=== PATIENT | male | born 1975 | race Caucasian/White ===

== ENCOUNTER 2024-04-26 08:26 | Outpatient (OUT) | payer BC, SELFPAY ==
[2024-04-26 09:17] LABS: Basophils Absolute Auto 0.1 10^3/uL (0.0-0.1); Basophils Percent Auto 0.7 % (0.2-2.0); Eosinophils Absolute Auto 0.2 10^3/uL (0.0-0.7); Eosinophils Percent Auto 2.9 % (0.9-7.0); Hematocrit 48.3 % (42.0-54.0); Hemoglobin 16.4 g/dL (14.0-18.0); Immature Granulocytes Abs Auto 0.03 10^3/uL (0.00-0.03); Immature Granulocytes Pct Auto 0.4 % (0.0-0.5); Lymphocytes Absolute Auto 2.2 10^3/uL (1.2-3.8); Lymphocytes Percent Auto 26.7 % (20.5-60.0); Mean Corpuscular Hemoglobin 31.4 pg (25.9-34.0); Mean Corpuscular Volume 92.4 fL (80.0-94.0); Mean Platelet Volume 9.6 fL (9.5-13.5); Monocytes Absolute Auto 0.7 10^3/uL (0.3-0.8); Monocytes Percent Auto 8.8 % (1.7-12.0); Neutrophils Percent Auto 60.5 % (43.0-75.0); Platelet Count 309 10^3/uL (150-450); Red Blood Count 5.23 10^6/uL (4.70-6.10); Red Cell Distribution Width 12.3 % (11.0-15.0); White Blood Count 8.2 10^3/uL (4.0-11.0)
[2024-04-26 09:19] LABS: Bilirubin Urine NEGATIVE (NEGATIVE); Blood Urine NEGATIVE (NEGATIVE); Clarity Urine CLEAR (CLEAR); Color Urine YELLOW (YELLOW); Glucose Urine UA NEGATIVE (NEGATIVE); Ketones Urine NEGATIVE (NEGATIVE); Leukocyte Esterase Urine NEGATIVE (NEGATIVE); Nitrite Urine NEGATIVE (NEGATIVE); Protein Urine NEGATIVE (NEG/TRACE); Specific Gravity Urine 1.025 (1.005-1.025); pH Urine 6.5 (5.0-9.0)
[2024-04-26 09:28] LABS: Alanine Aminotransferase 54 U/L (16-63); Albumin Globulin Ratio 0.7; Albumin Level 2.9 g/dL (3.4-5.0); Alkaline Phosphatase 95 U/L (46-116); Anion Gap 13.5; Aspartate Amino Transferase 31 U/L (15-37); BUN Creatinine Ratio 12.4; Bilirubin Total 0.8 mg/dL (0.2-1.0); Calcium 8.4 mg/dL (8.5-10.1); Carbon Dioxide 27.6 mmol/L (21.0-32.0); Chloride 103 mmol/L (98-107); Chol HDL Ratio 6.3; Cholesterol 269 mg/dL (<=200); Estimated GFR (African America >60 (>=60 mL/min/1.73m^2); Estimated GFR (Non-African Ame >60 (>=60 mL/min/1.73m^2); Glucose 117 mg/dL (74-106); HDL Cholesterol 43 mg/dL (40-60); Potassium 4.1 mmol/L (3.5-5.1); Sodium 140 mmol/L (136-145); Thyroid Stimulating Hormone 2.717 uIU/mL (0.358-3.740); Total Protein 6.9 g/dL (6.4-8.2); Triglycerides 128 mg/dL (<=150); VLDL CHOLESTEROL 25.6 mg/dL
[2024-04-26 10:01] LABS: Prostate Specific Antigen Scrn 1.01 ng/mL (<=4.00)
[2024-04-26 12:02] LABS: Bacteria Urine NONE SEEN #/HPF (NONE SEEN); Cast Seen? NONE SEEN #/LPF (NONE SEEN); Crystals Seen? None Seen #/HPF (None Seen); Mucus Urine NONE SEEN (NONE SEEN); RBC Urine NONE SEEN #/HPF (0-2); Squamous Epithelial Cell Urine RARE #/LPF (NONE/RARE); Urine Culture Indicated NO; WBC Urine NONE SEEN #/HPF (NONE SEEN)
== END 2024-04-26 08:27 | disposition home or self-care (01) ==
LOC: LAB 08:31
PROVIDERS: PCP Family Medicine; Visit Provider Family Medicine
DX: Z00.00 Encounter for general adult medical examination without abnormal findings (principal)
CPT/HCPCS: 36415; 80053; 80061; 81001; 84443; 85025; G0103

== ENCOUNTER 2024-08-15 00:53 | Emergency (ER) | payer BC, SELFPAY ==
[2024-08-15 01:07] VITALS: BP 159/110; PULSE 78; TEMP 36.8; O2SAT 97; BMI 33.0
--- OUTSIDE RECORDS SUMMARY | 2024-08-15 01:08 | XMS_ITS | CCD ---
Author Organization [facility] Care Team Providers Care Hand Edger Name Role Phone INGRIS SILVESTRE Consulting Unavailable INGRIS SILVESTRE Admitting Unavailable INGRIS SILVESTRE Attending Unavailable INGRIS SILVESTRE Consulting Unavailable INGRIS SILVESTRE Admitting Unavailable INGRIS SILVESTRE Attending Unavailable DEVON, DR MTZ Attending Unavailable DEVON, DR MTZ Consulting Unavailable DEVON, DR MTZ Primary Care Unavailable DEVON, DR MTZ Admitting Unavailable ZIHECTOR, DR EDISON Soliz Consulting Unavailable Bibi Osorio DO Primary Care Provider Unavail able QUINTON ESQUIVEL Attending Unavailable BIBI OSORIO Primary Care Unavailable Bibi Osorio Primary Care Physician Doug PECK Attending Unavailable Doug PECK Attending Unavailable Doug PECK Attending Unavailable Allergies Allergy Classification Reported Allergen(s) Allergy Type Date of Onset Reaction(s) Facility (3 sources) Amoxicillin; Translations: [amoxicillin] Drug Allergy [address] [facility] Repository (2 sources) Amoxicillin; Translations: [amoxicillin] Drug Allergy 2 Nausea And Vomiting, Nausea (finding) [facility] Medications Current Medications Medication Drug Class(es) Dates Sig (Normalized) Sig (Original) acetaminophen 500 mg oral tablet (2 sources) Start: 02-07-2022 take 2 tablets by mouth every six hours as needed for pain acetaminophen (TYLENOL) 500 MG tablet Take 2 tablets by mouth every 6 hours as needed for Pain or Fever 60 tablet 0 02/07/2022 Active Start: 02-06-2022 acetaminophen (TYLENOL) tablet 1,000 mg cephalexin 500 mg oral capsule (1 source) Cephalosporin Antibacterial Start: 06-24-2024 End: 06-29-2024 take 1 capsule by mouth twice daily at mealtime Keflex 500 mg Cap 500 mg = 1 cap(s), Oral, BID, start with first meal after procedure, X 5 day(s), # 10 cap(s), Refills(s) 0, Pharmacy: [facility]/pharmacy #[id number], 192, cm, 06/24/24 11:33:00 EST, Height/Length Dosing, 144, kg, 06/24/24 11:33:00 EST, Weight Dosing Start Date: 06/24/24 Stop Date: 06/29/24 Status: Ordered citalopram 20 mg oral tablet (2 sources) Serotonin Reuptake Inhibitor Start: 06-24-2024 take 1 tablet by mouth once daily CeleXA 20 mg Tab 20 mg = 1 tab(s), Oral, Daily Start Date: 06/24/24 Status: Ordered Start: 04-23-2018 End: 04-05-2024 take 1 tablet by mouth once daily Citalopram (Celexa) 40 mg tablet Discontinued 40 MG PO Daily April 23, 2018 1:00am April 05, 2024 10:44am gentamicin 0.003 mg/mg ophthalmic ointment (1 source) Start: 02-07-2022 End: 02-17-2022 gentamicin (GARAMYCIN) 0.3 % ophthalmic ointment Apply to the eye 3 times daily for 5 days. 3.5 g 0 02/07/2022 02/17/2022 Active ibuprofen 400 mg oral tablet (2 sources) Nonsteroidal Anti-inflammatory Drug Start: 02-07-2022 take 1 tablet by mouth every six hours as needed for pain ibuprofen (IBU) 400 MG tablet Take 1 tablet by mouth every 6 hours as needed for Pain 120 tablet 0 02/07/2022 Active Start: 02-07-2022 ibuprofen (ADV IL;MOTRIN) tablet 400 mg sertraline 25 mg oral tablet (1 source) Serotonin Reuptake Inhibitor Start: 04-05-2024 take 25 mg by mouth once daily Sertraline Active 25 MG PO Daily April 05, 2024 12:00am Completed/Discontinued Medications Medication Drug Class(es) Dates Sig (Normalized) Sig (Original) acetaminophen 325 mg / oxyCODONE hydrochloride 5 mg oral tablet (1 source) Opioid Agonist Start: 06-26-2018 End: 07-03-2018 take 1 tablet by mouth every four to six hours Oxycodone-Acetami nophen (Percocet) 5-325 mg tablet Discontinued 1 - 2 TAB PO EVERY 4-6 HOURS 40 7 June 26, 2018 July 03, 2018 1:02am proparacaine hydrochloride 5 mg/ml ophthalmic solution (1 source) Local Anesthetic Start: 02-06-2022 End: 02-06-2022 proparacaine (ALCAINE) 0.5 % ophthalmic solution 1 drop tobramycin 0.003 mg/mg ophthalmic ointment (1 source) Aminoglycoside Antibacterial Start: 02-07-2022 End: 02-07-2022 tobramycin (TOBREX) 0.3 % ophthalmic ointment 0.5 inch Problems Active Problems Problem Classification Problem Date Documented Date Episodic/Chronic Anxiety disorders (2 sources) Mixed anxiety and depressive disorder; Translations: [Other specified anxiety disorders] 04-05-2024 Chronic Contraceptive and procreative management (1 source) Contraception status; Translations: [Encounter for other general counseling and advice on contraception] Onset: 06-24-2024 Episodic Other circulatory disease (1 source) Elevated blood pressure; Translations: [Elevated blood-pressure reading, without diagnosis of hypertension] 04-05-2024 Episodic Other circulatory disease (1 source) Elevated blood-pressure reading, without diagnosis of hypertension; Translations: [Elevated blood pressure reading without diagnosis of hypertension] 04-05-2024 Episodic Other eye disorders (1 source) Ulcer of cornea of left eye; Translations: [Unspecified corneal ulcer, left eye] Episodic Other eye disorders (1 source) Pain in eye; Translations: [Ocular pain, left eye] Episodic Other screening for suspected conditions (not mental disorders or infectious disease) (2 sources) Patient encounter status; Translations: [Encounter for screening for malignant neoplasm of colon] 04-05-2024 Episodic Substance-related disorders (1 source) Smoker 06-24-2024 Chronic Comment on above: Added secondary to d ocumentation in Social History. Thyroid disorders (4 sources) Iodine-deficiency related diffuse (endemic) goiter; Translations: [IODINE-DEFIC REL DIFFUSE GOITER] Onset: 02-01-2021 Chronic Past or Other Problems Problem Classification Problem Date Documented Da te Episodic/Chronic Immunizations and screening for infectious disease (4 sources) Encounter for immunization; Translations: [ENCOUNTER FOR IMMUNIZATION] Onset: 10-15-2020 Episodic Results Test Name Value Interpretation Reference Range Facil ity Ambulatory Visit Summaryon 0 06-24-2024 Ambulatory Visit Summary Ambulatory Visit Summary KINJAL RASMUSSEN :1975 Visit Date:06/24/2024 Ambulatory Visit Instructions Your Diagnosis Encounter for vasectomy assessment Your Care Team Attending Physician - Doug PECK MD Primary Care Physician - Bibi Osorio DO This Is Your Medications List cephalexin (Keflex 500 mg Cap) Contact prescribing physician if questions or concerns citalopram (CeleXA 20 mg Tab) Procedures Performed Hernia repair. Discharge Vitals Heart Rate (Peripheral) 65 Respiratory Rate 16 Blood Pressure 160/106 Height 76 in Height 192 cm Weight 317.465 lb Weight 144 kg BMI 39.06 What to do next Scheduled Follow-Up Appointments Monday 9:15 AM EDT With: Doug PECK MD Where: [facility] [address] [address]- You Need to Schedule the Following Appointments Follow Up with Doug PECK MD, URL When: Comments: schedule vasectomy Where: [facility] [address] , [place] [address]- [phone] Medications What How Much When Why Instructions New cephalexin (Keflex 500 mg Cap) 1 Capsules By Mouth 2 times a day Encounter for vasectomy assessment Duration: 5 Days start with first meal after procedure Pickup at [facility]/pharmacy #[id number] Unchanged citalopram (CeleXA 20 mg Tab) 1 Tablets By Mouth Every day Contact prescribing physician if questions or concerns Pharmacy Information [facility]/pharmacy #[id number]: [address] [place], [place] [phone] Allergies No active allergies Problems Ongoing - Any problem that you are currently receiving treatment for. Smoker Patient Survey You may receive a survey via text or e-mail asking about your office visit. Please share your experience with us by completing your survey. We appreciate your feedback and thank you for choosing us for your care. Education Materials Vasectomy, Care After This sheet gives you information about how to care for yourself after your procedure. Your health care provider may also give you more specific instructions. If you have problems or questions, contact your health care provider. What can I expect after the procedure? After the procedure, it is common to have: ??? Mild pain, swelling, or discomfort in your scrotum or redness on your scrotum. ??? Some blood coming from your incisions or puncture sites for 1 or 2 days. ??? Blood in your semen. Follow these instructions at home: Medicines ??? Take rhbr-tei-inaatix and prescription medicines only as told by your health care provider. ??? Avoid taking any medicines that contain aspirin or NSAIDs, such as ibuprofen. These medicines can make bleeding worse. Activity ??? For the first 2 days after surgery, avoid physical activity and exercise that requires a lot of energy. Ask your health care provider what activities are safe for you. ??? Do not take part in sports or perform heavy physical labor until your pain has improved, or until your health care provider says it is okay. ??? You may have limits on the amount of weight you can lift as told by your health care provider. ??? Do not ejaculate for at least 1 week after the procedure, or for as long as you are told. ??? You may resume sexual activity 7???10 days after your procedure, or when your health care provider approves. Use a different method of control (contraception) until you have had test results that confirm that there is no sperm in your semen. Scrotal support ??? Use scrotal support, such as a jockstrap or underwear with a supportive pouch, as needed for 1 week after your procedure. ??? If you feel discomfort in your scrotum, you may remove the scrotal support to see if the discomfort is relieved. Sometimes scrotal support can press on the scrotum and cause or worsen discomfort. ??? If your skin gets irritated, you may add some germ-free (sterile), fluffed bandages or a clean washcloth to the scrotal support. Managing pain and swelling If directed, put ice on the affected area. To do this: ??? Put ice in a plastic bag. ??? Place a towel between your skin and the bag. ??? Leave the ice on for 20 minutes, 2???3 times a day. ??? Remove the ice if your skin turns bright red. This is very important. If you cannot feel pain, heat, or cold, you have a greater risk of damage to the area. General instructions ??? Check your incisions or puncture sites every day for signs of infection. Check for: ? Redness, swelling, or more pain. ? Fluid or blood. ? Warmth. ? Pus or a bad smell. ??? Leave stitches (sutures) in place. The sutures will dissolve on their own and do not need to be removed. ??? Keep all follow-up visits. This is important because you will need a test to confirm that there is no sperm in your semen. (more content not included)... Normal [facility] Urology Office/Clinic Noteon 06-24-2024 Urology Office/Clinic Note Urology Office/Clinic Note Chief Complaint Vasectomy consult HPI Staff 48 year old male patient here for vasectomy consult. 2 children, 28, 23 years old. IPSS: 0, ZENY: 25 No urology issues at this time. History of Present Illness Tests reviewed: reviewed UA I have reviewed the previous health record information and history for this patient from external providers. I have reviewed and verified the staff HPI to be accurate for this encounter. Review of Systems PHQ Score Initial Depression Screen Score: 0 SCORE ROS - Provider Constitutional: denies weight loss, denies hot flashes. Eyes: denies eye problems. Gastrointestinal: denies nausea, denies vomiting. Cardiovascular: denies chest pain or angina. Integumentary: no dryness Musculoskeletal: denies musculoskeletal symptoms. ENMT: denies otolaryngeal symptoms. Respiratory: no shortness of breath. Heme/Lymph: denies easy bleeding tendency, denies easy bruising tendency. Psychiatric: no confusion, no anxiety. Genitourinary: See HPI. Physical Exam Vitals & Measurements HR: 65(Peripheral) RR: 16 BP: 160/106 HT: 76 in HT: 192 cm WT: 144 kg WT: 317.465 lb BMI: 39.06 General Appearance: alert, no distress, well nourished, well developed male. Assessment/Plan Kinjal is a 48 yo male new pt here for vasectomy consult. IPSS 0. ZENY 25. 1. Encounter for vasectomy assessment (Z30.09: Encounter for other general counseling and advice on contraception) Pt has 2 children and desires sterilization. UA today negative for blood and infection. -Will schedule Vasectomy. The procedural risks, benefits, details, and treatment alternatives of sterilization have been discussed with the patient today. He understands this procedure is considered permanent, even though vasectomy reversals can be performed. There is no guarantee of successful reversal resulting in , however. Risks discussed include bleeding, infection, failure with in about 1:2500, post-vasectomy syndrome (chronic pain in the testicle or scrotum), possible association with prostate cancer development in the future, and erection problems, among others. Despite these risks, he wishes to proceed. He also understands that he is not considered sterile until a negative semen sample has been received after about 2-3 months after the vasectomy. Full informed consent has been obtained. Will order Local anesthesia. -Abstinence and no masturbation for 1 week after procedure -Shave site the night prior -50% of usual activity the day after Follow-up With When Contact Information LEX HERNÁNDEZ, Doug Soliz, URL [facility] [address], [place] [address]- [phone] Additional Instructions: schedule vasectomy Patient Education Vasectomy, Care After Vasectomy IYusra, personally scribed for Dr. Peck on 06/24/2024 11:44:59. . Documentation recorded by the scribeYusra, accurately reflects the services(s) I performed and decisions made by me. Authenticated by Dr. Peck on 06/24/2024 11:45:42. Problem List/Past Medical History Ongoing Smoker Historical No qualifying data Procedure/Surgical History Hernia repair. Medications CeleXA 20 mg Tab, 20 mg= 1 tab(s), Oral, Daily Allergies No active allergies Social History Alcohol Never., 06/24/2024 Substance Abuse Never., 06/24/2024 Tobacco 5-9 cigarettes (between 1/4 to 1/2 pack)/day in last 30 days Tobacco Use:. Never Smokeless Tobacco Use:. Cigarettes, Started age 26.0 Years., 06/24/2024 Family History Family history is negative Immunizations Vaccine Date Status Comments diphtheria/pertussis, acel/tetanus adult 02/07/2022 Recorded 2024-06-24: VIS DATE: 01/08/2021 SARS-CoV-2 (COVID-19) mRNA-1273 vaccine 06/26/2021 Recorded SARS-CoV-2 (COVID-19) mRNA BNT-162b2 vax 10/15/2020 Recorded SARS-CoV-2 (COVID-19) mRNA BNT-162b2 vax 09/24/2020 Recorded Lab Results Ambulatory Point of Care Results Bilirubin Urine Dipstick: Negative (06/24/24 11:28:00) Blood Urine Dipstick: Negative (06/24/24 11:28:00) Glucose Urine Dipstick: Negative (06/24/24 11:28:00) Ketones Urine Dipstick: Negative (06/24/24 11:28:00) Leukocytes Urine Dipstick: Negative (06/24/24 11:28:00) Nitrite Urine Dipstick: Negative (06/24/24 11:28:00) Protein Urine Dipstick: Negative (06/24/24 11:28:00) Specific Whitney Urine Dipstick: 1.025 (06/24/24 11:28:00) Urine Appearance Urine Dipstick: Clear (06/24/24 11:28:00) Urine Color Urine Dipstick: Yellow (06/24/24 11:28:00) Urobilinogen Urine Dipstick: Normal 0.2-1 EU/dl (06/24/24 11:28:00) pH Urine Dipstick: 5.5 (06/24/24 11:28:00) Normal [facility] Comment on above: Result Comment: Elec tronically Signed By: Doug PECK MD\.br\Date and Time Signed: 06/24/24 11:45 EST\.br\Electronically Co-Signed By: Yusra Wynn.br\Date and Time Co-Signed: 06/24/24 11:45 EST US THYROIDon 02-02-2021 US THYROID EXAMINATION: US THYROID HISTORY: Gkakzx-pmcqglrnsq-aryh ru endemic goiter COMPARISON: No relevant comparison available. FINDINGS: RIGHT LOBE: Normal size and echotexture. Lobe size: 4.1 x 1.3 x 1.6 cm LEFT LOBE: Normal size and echotexture. Lobe size: 4.3 x 1.7 x 1.7 cm ISTHMUS: Normal size and echotexture. Thickness: 3 mm IMPRESSION: 1. Normal ultrasound appearance of the thyroid gland. Electronically authenticated by: EDISON BRASWELL Date: 2021-02-02 07:[address] [facility] Vital Signs Date Time Vital Sign Value Performing Clinician Rufino titus 06-24-2024 11:38-0500 Diastolic blood pressure 106 mm[Hg] Doug PECK [facility] 06-24-2024 11:38-0500 Mean blood pressure 124 mm[Hg] Doug PECK [facility] 06-24-2024 11:38-0500 Systolic blood pressure 160 mm[Hg] Doug PECK [facility] 06-24-2024 11:29-0500 Diastolic blood pressure 109 mm[Hg] Doug PECK [facility] 06-24-2024 11:29-0500 Heart rate 65 /min Doug PECK [facility] 06-24-2024 11:29-0500 Respiratory rate 16 /min Doug PECK [facility] 06-24-2024 11:29-0500 Systolic blood pressure 162 mm[Hg] Doug PECK [facility] 04-05-2024 08:42-0400 Body height 189.87 cm [facility] 04-05-2024 08:42-0400 Body mass index (BMI) [Ratio] 39.1 kg/m2 [facility] 04-05-2024 08:42-0400 Body temperature 97.3 [degF] [facility] 04-05-2024 08:42-0400 Body weight 141.06 kg [facility] 04-05-2024 08:42-0400 Diastolic blood pressure 100 mm[Hg] [facility] 04-05-2024 08:42-0400 Heart rate 79 /min [facility] 04-05-2024 08:42-0400 Respiratory rate 18 /min [facility] 04-05-2024 08:42-0400 SaO2% (BldA) [Mass fraction] 94 % [facility] 04-05-2024 08:42-0400 Systolic blood pressure 146 mm[Hg] [facility] 02-06-2022 23:29-0400 Body temperature 98.4 [degF] Quinton Esquivel MD Work Phone: [facility] [employer] 02-06-2022 23:19-0400 Body height 193 cm Quinton Esquivel MD Work Phone: [id number] [facility] 02-06-2022 23:19-0400 Body mass index (BMI) [Ratio] 33.47 kg/m2 Quinton Esquivel MD Work Phone: [facility] [employer] 02-06-2022 23:19-0400 Body weight 124.74 kg Quinton Esquivel MD Work Phone: [facility] [employer] 02-06-2022 23:19-0400 Diastolic blood pressure 96 mm[Hg] Quinton Esquivel MD Work Phone: [facility] [employer] 02-06-2022 23:19-0400 Heart rate 80 /min Quinton Esquivel MD Work Phone: [facility] [employer] 02-06-2022 23:19-0400 Respiratory rate 20 /min Quinton Esquivel MD Work Phone: [facility] [employer] 02-06-2022 23:19-0400 SaO2% (BldA) [Mass fraction] 95 % Quinton Esquivel MD Work Phone: [facility] [employer] 02-06-2022 23:19-0400 Systolic blood pressure 135 mm[Hg] Quinton Esquivel MD Work Phone: [facility] Encounters Encounter Date Encounter Type Care Provider Facility Start: 09-13-2024 ambulatory Doug Valentine ty:[facility] Start: 08-30-2024 ambulatory Doug PECK Meme ty:[id number] Start: 06-24-2024 End: 06-24-2024 ambulatory Doug PECK Facility:[facility] [place] Start: 06-24-2024 End: 06-24-2024 Patient encounter procedure Doug R PECK [facility] Start: 05-17-2024 ambulatory Dougmirza PECK Facility :[facility] Start: 04-05-2024 Patient encounter status [facility] Start: 04-05-2024 End: 04-05-2024 ambulatory [facility] Work Phone: Start: 04-05-2024 End: 04-05-2024 Encounter for general adult medical examination without abnormal findings [facility] Start: 04-05-2024 End: 04-05-2024 Patient encounter procedure [facility] [place] Work Phone: Start: 02-07-2022 End: 02-07-2022 Emergency department patient visit QUINTON ESQUIVEL [facility] Start: 02-06-2022 End: 02-07-2022 Emergency department patient visit Quinton Esquivel MD Work Phone: [facility] ED Comment on above: Corneal ulcer of lef t eye (Primary Dx); Acute left eye pain Start: 02-01-2021 End: 02-02-[address] BIBI OSORIO Facility:[facility] Start: 10-15-2020 End: 10-16-2020 ambulatory INGRIS SILVESTRE Facility:[facility] Start: 09-24-2020 End: 09-25-2020 ambulatory INGRIS SILVESTRE Facility:[facility] Procedures Date Procedure Procedure Detail Performing Clinician Hernia repair Doug LEX Plan of Treatment Date Care Activity Detail Author Start: 02-08-2032 DTaP/Tdap/Td vaccine (2 - Td or Tdap) DTaP/Tdap/Td vaccine (2 - Td or Tdap) [facility] Start: 04-05-2024 Patient referral [facility] Work Phone: Start: 02-03-2022 Influenza vaccination Flu vaccine (# 1) [facility] Start: 01-19-1978 COVID-19 Vaccine (#1) COVID-19 Vaccine (#1) [facility] Comprehensive metabo lic 2000 panel - Serum or Plasma [facility] Patient referral [facility] Work Phone: [facility] Immunizations Immunization Date Immunization Notes Care Provider Fa cility 02-07-2022 tetanus toxoid, redu cuca diphtheria toxoid, and acellular pertussis vaccine, adsorbed Quinton Esquivel MD Work Phone: [facility] Comment on above: Result Comment: 2024: VIS DATE: 01/08/2021 06-26-2021 SARS-CoV-2 (COVID-19 ) mRNA-1273 vaccine Doug PECK [facility] 10-15-2020 COVID-19 mRNA, Comirnaty (Pfizer) [facility] 09-24-2020 COVID-19 mRNA, Comirnaty (Pfizer) [facility] Payers Date Payer Category Payer Unknown [id number] 2014 Unknown [id number] 1977 Unknown [id number] 1975 Unknown [id number] 1977 Unknown [id number] 1977 Unknown [id number] 1977 Unknown [id number] 1959 Unknown [id number] Self-pay Self Pay [id number] Worker's Compensation [facility] [employer] 2 [id number] Social History Date Type Detail Facility Tobacco smoking status GAIS Tobacco smoking consumption unknown [employer] Phone: Start: 1975 Sex Assigned At Not on file [employer] Phone: Start: 01-27-2022 End: 02-07-2022 Exposure to SARS-CoV-2 (event) Not sure [employer] Phone: Start: 04-05-2024 Tobacco smoking status NHIS Smoker (finding) [facility] Start: 1975 Sex Assigned At Male [facility] Start: 06-24-2024 Tobacco smoking status Light tobacco smoker (finding) [facility] Tobacco smoking status Never [facility] Sex Assigned At Male [facility] Medical Equipment Procedure Code Equipment Code Equipment Origin al Text Equipment Identifier Dates Repair, hernia, ventral, laparoscopic MESH ECHO PS [id number] FDA Start: 06-26-2018 Repair, hernia, ventral, laparoscopic VENTRALIGHT ST MESH WITH ECHO FDA Start: 06-26-2018 fluorescein ophthalmic strip 2 mg [id number] Start: 02-06-2022 End: 02-06-2022 Functional Status Date Assessment Result Facility 06-24-2024 Functional Status N/A [facility] Discharge instructions 06-24-2024 Note Date & Type Note Facility 06-24-2024 Hospital Discharg e instructions Patient Education 06/24/2024 11:38:35 Vasectomy, Care After Vasectomy, Care After This sheet gives you information about how to care for yourself after your procedure. Your health care provider may also give you more specific instructions. If you have problems or questions, contact your health care provider. What can I expect after the procedure? After the procedure, it is common to have: Mild pain, swelling, or discomfort in your scrotum or redness on your scrotum. Some blood coming from your incisions or puncture sites for 1 or 2 days. Blood in your semen. Follow these instructions at home: Medicines Take agtz-fqq-bwliktw and prescription medicines only as told by your health care provider. Avoid taking any medicines that contain aspirin or NSAIDs, such as ibuprofen. These medicines can make bleeding worse. Activity For the first 2 days after surgery, avoid physical activity and exercise that requires a lot of energy. Ask your health care provider what activities are safe for you. Do not take part in sports or perform heavy physical labor until your pain has improved, or until your health care provider says it is okay. You may have limits on the amount of weight you can lift as told by your health care provider. Do not ejaculate for at least 1 week after the procedure, or for as long as you are told. You may resume sexual activity 7 10 days after your procedure, or when your health care provider approves. Use a different method of control (contraception) until you have had test results that confirm that there is no sperm in your semen. Scrotal support Use scrotal support, such as a jockstrap or underwear with a supportive pouch, as needed for 1 week after your procedure. If you feel discomfort in your scrotum, you may remove the scrotal support to see if the discomfort is relieved. Sometimes scrotal support can press on the scrotum and cause or worsen discomfort. If your skin gets irritated, you may add some germ-free (sterile), fluffed bandages or a clean washcloth to the scrotal support. Managing pain and swelling If directed, put ice on the affected area. To do this: Put ice in a plastic bag. Place a towel between your skin and the bag. Leave the ice on for 20 minutes, 2 3 times a day. Remove the ice if your skin turns bright red. This is very important. If you cannot feel pain, heat, or cold, you have a greater risk of damage to the area. General instructions Check your incisions or puncture sites every day for signs of infection. Check for: ?Redness, swelling, or more pain. ?Fluid or blood. ?Warmth. ?Pus or a bad smell. Leave stitches (sutures) in place. The sutures will dissolve on their own and do not need to be removed. Keep all follow-up visits. This is important because you will need a test to confirm that there is no sperm in your semen. Multiple ejaculations are needed to clear out sperm that were beyond the vasectomy site. You will need one test result showing that there is no sperm in your semen before you can resume unprotected sex. This may take 2 4 months after your procedure. If you were given a sedative during the procedure, it can affect you for several hours. Do not drive or operate machinery until your health care provider says that it is safe. Contact a health care provider if: You have redness, swelling, or more pain around an incision or puncture site, or in your scrotum area. You have bleeding from an incision or puncture site. You have pus or a bad smell coming from an incision or puncture site. You have a fever. An incision or puncture site opens up. Get help right away if: You develop a rash. You have trouble breathing. Summary After your procedure, it is common to have mild pain, swelling, redness, or discomfort in your scrotum. For the first 2 days after surgery, avoid physical activity and exercise that requires a lot of energy. Put ice on the affected area. Leave the ice on for 20 minutes, 2 3 times a day. If you were given a sedative during the procedure, it can affect you for several hours. Do not drive or operate machinery until your health care provider says that it is safe. This information is not intended to replace advice given to you by your health care provider. Make sure you discuss any questions you have with your health care provider. Document Revised: 10/08/2020 Document Reviewed: 10/08/2020 [employer] Patient Education 2023 [employer]. 06/24/2024 11:38:34 Vasectomy Vasectomy Vasectomy is a procedure in which the vas deferens is cut and then tied or burned (cauterized). The vas deferens is a tube that carries sperm from the testicle to the part of the body that drains urine from the bladder (urethra). This procedure blocks sperm from going through the vas deferens and penis during ejaculation. This ensures that sperm does not go into the vagina during sex. Vasectomy does not affect sexual desire or performance and does not prevent sexually transmitted infections. Vasectomy is considered a permanent and very effective form of control (contraception). The decision to have a vasectomy should not be made during a stressful time, such as after the loss of a or a divorce. You and your partner should decide on whether to have a vasectomy when you are sure that you do not want children in the future. Tell a health care provider about: Any allergies you have. All medicines you are taking, including vitamins, herbs, eye drops, creams, and olwx-srk-faclxta medicines. Any problems you or family members have had with anesthetic medicines. Any blood disorders you have. Any surgeries you have had. Any medical conditions you have. What are the risks? Generally, this is a safe procedure. However, problems may occur, including: Infection. Bleeding and swelling of the scrotum. The scrotum is the sac that contains the testicles, blood vessels, and structures that help deliver sperm and semen. Allergic reactions to medicines. Failure of the procedure to prevent . There is a very small chance that the tied or cauterized ends of the vas deferens may reconnect (recanalization). If this happens, you could still make a woman . Pain in the scrotum that continues after you heal from the procedure. What happens before the procedure? Medicines Ask your health care provider about: ?Changing or stopping your regular medicines. This is especially important if you are taking diabetes medicines or blood thinners. ?Taking medicines such as aspirin and ibuprofen. These medicines can thin your blood. Do not take these medicines unless your health care provider tells you to take them. ?Taking segi-jmb-yriouve medicines, vitamins, herbs, and supplements. You may be told to take a medicine to help you relax (sedative) a few hours before the procedure. General instructions Do not use any products that contain nicotine or tobacco for at least 4 weeks before the procedure. These products include cigarettes, e-cigarettes, and chewing tobacco. If you need help quitting, ask your health care provider. Plan to have a responsible adult take you home from the hospital or clinic. If you will be going home right after the procedure, plan to have a responsible adult care for you for the time you are told. This is important. Ask your health care provider: ?How your surgery site will be marked. ?What steps will be taken to help prevent infection. These steps may include: ?Removing hair at the surgery site. ?Washing skin with a germ-killing soap. ?Taking antibiotic medicine. What happens during the procedure? You will be given one or more of the following: ?A sedative, unless you were told to take this a few hours before the procedure. ?A medicine to numb the area (local anesthetic). Your health care provider will feel, or palpate, for your vas deferens. To reach the vas deferens, one of two methods may be used: ?A very small incision may be made in your scrotum. ?A punctured opening may be made in your scrotum, without an incision. Your vas deferens will be pulled out of your scrotum and cut. Then, the vas deferens will be closed in one of two ways: ?Tied at the ends. ?Cauterized at the ends to seal them off. The vas deferens will be put back into your scrotum. The incision or puncture opening will be closed with absorbable stitches (sutures). The sutures will eventually dissolve and will not need to be removed after the procedure. The procedure will be repeated on the other side of your scrotum. The procedure may vary among health care providers and hospitals. What happens after the procedure? You will be monitored to make sure that you do not have problems. You will be asked not to ejaculate for at least 1 week after the procedure, or for as long as you are told. You will need to use a different form of contraception for 2 4 months after the procedure, until you have test results confirming that there are no sperm in your semen. You may be given scrotal support to wear, such as a jockstrap or underwear with a supportive pouch. If you were given a sedative during the procedure, it can affect you for several hours. Do not drive or operate machinery until your health care provider says that it is safe. Summary Vasectomy blocks sperm from being released during ejaculation. This procedure is considered a permanent and very effective form of control. Your scrotum will be numbed with medicine (local anesthetic) for the procedure. After the procedure, you will be asked not to ejaculate for at least 1 week, or for as long as you are told. You will also need to use a different form of contraception until your test results confirm that there are no sperm in your semen. This information is not intended to replace advice given to you by your health care provider. Make sure you discuss any questions you have with your health care provider. Document Revised: 10/08/2020 Document Reviewed: 10/08/2020 [employer] Patient Education 2023 [employer]. Follow Up Care 06/20/2024 15:47:33 With:LEX HERNÁNDEZ, Doug Soliz, URL Address: [facility] [address] [place] [address] [phone] When: Unknown Comments:schedule vasectomy [facility] Clinical Note 06-24-2024 Note Date & Type Note Facility 06-24-2024 Note Patient Education Urology Vasectomy, Care After This sheet gives you information about how to care for yourself after your procedure. Your health care provider may also give you more specific instructions. If you have problems or questions, contact your health care provider. What can I expect after the procedure? After the procedure, it is common to have: ??? Mild pain, swelling, or discomfort in your scrotum or redness on your scrotum. ??? Some blood coming from your incisions or puncture sites for 1 or 2 days. ??? Blood in your semen. Follow these instructions at home: Medicines ??? Take wcki-iis-gethjfc and prescription medicines only as told by your health care provider. ??? Avoid taking any medicines that contain aspirin or NSAIDs, such as ibuprofen. These medicines can make bleeding worse. Activity ??? For the first 2 days after surgery, avoid physical activity and exercise that requires a lot of energy. Ask your health care provider what activities are safe for you. ??? Do not take part in sports or perform heavy physical labor until your pain has improved, or until your health care provider says it is okay. ??? You may have limits on the amount of weight you can lift as told by your health care provider. ??? Do not ejaculate for at least 1 week after the procedure, or for as long as you are told. ??? You may resume sexual activity 7?10 days after your procedure, or when your health care provider approves. Use a different method of control (contraception) until you have had test results that confirm that there is no sperm in your semen. Scrotal support ??? Use scrotal support, such as a jockstrap or underwear with a supportive pouch, as needed for 1 week after your procedure. ??? If you feel discomfort in your scrotum, you may remove the scrotal support to see if the discomfort is relieved. Sometimes scrotal support can press on the scrotum and cause or worsen discomfort. ??? If your skin gets irritated, you may add some germ-free (sterile), fluffed bandages or a clean washcloth to the scrotal support. Managing pain and swelling If directed, put ice on the affected area. To do this: ??? Put ice in a plastic bag. ??? Place a towel between your skin and the bag. ??? Leave the ice on for 20 minutes, 2?3 times a day. ??? Remove the ice if your skin turns bright red. This is very important. If you cannot feel pain, heat, or cold, you have a greater risk of damage to the area. General instructions ??? Check your incisions or puncture sites every day for signs of infection. Check for: ? Redness, swelling, or more pain. ? Fluid or blood. ? Warmth. ? Pus or a bad smell. ??? Leave stitches (sutures) in place. The sutures will dissolve on their own and do not need to be removed. ??? Keep all follow-up visits. This is important because you will need a test to confirm that there is no sperm in your semen. Multiple ejaculations are needed to clear out sperm that were beyond the vasectomy site. You will need one test result showing that there is no sperm in your semen before you can resume unprotected sex. This may take 2?4 months after your procedure. ??? If you were given a sedative during the procedure, it can affect you for several hours. Do not drive or operate machinery until your health care provider says that it is safe. Contact a health care provider if: ??? You have redness, swelling, or more pain around an incision or puncture site, or in your scrotum area. ??? You have bleeding from an incision or puncture site. ??? You have pus or a bad smell coming from an incision or puncture site. ??? You have a fever. ??? An incision or puncture site opens up. Get help right away if: ??? You develop a rash. ??? You have trouble breathing. Summary ??? After your procedure, it is common to have mild pain, swelling, redness, or discomfort in your scrotum. ??? For the first 2 days after surgery, avoid physical activity and exercise that requires a lot of energy. ??? Put ice on the affected area. Leave the ice on for 20 minutes, 2?3 times a day. ??? If you were given a sedative during the procedure, it can affect you for several hours. Do not drive or operate machinery until your health care provider says that it is safe. This information is not intended to replace advice given to you by your health care provider. Make sure you discuss any questions you have with your health care provider. Document Revised: 10/08/2020 Document Reviewed: 10/08/2020 [employer] Patient Education ? 2023 [employer]. Vasectomy Vasectomy is a procedure in which the vas deferens is cut and then tied or burned (cauterized). The vas deferens is a tube that carries sperm from the testicle to the part of the body that drains urine from the bladder (urethra). This procedure blocks sperm from going through the vas deferens and penis during ejaculation. This ensu (more content not included)... [facility] Evaluation + Plan note Note Date & Type Note Facility Evaluation + Plan note Future Appointments Appointment Date:09/13/2024 09:15:00 AM Scheduled Provider:Doug PECK MD Location:[facility] Appointment Type:URO Office Visit [facility] Evaluation note Note Date & Type Note Facility Evaluation note Diagnosis Corneal ulcer of left eye- Primary Corneal ulcer, unspecified Acute left eye pain documented in this encounter [employer] Phone: Evaluation note Note Date & Type Note Facility Evaluation note Diagnosis Onset Date Anxiety with depression acut e Elevated blood pressure reading acute Encounter for screening colonoscopy acute Wellness examination acute [facility] Work Phone: Hospital course Narrative Note Date & Type Note Facility Hospital course Narrative No data available for this section [facility] Discharge instructions Attachments Note Date & Type Note Facility Hospital Discharge instructions The following attachments cannot be sent through Care Everywhere.Ulcerative Keratitis ([employer])documented in this encounter [employer] Phone: Hospital Discharge instructions Note Date & Type Note Facility Hospital Discharge instructions Ambulatory OrdersReferral to Urology Time Frame: 04/05/24, Location: None [facility] Work Phone: Progress note Note Date & Type Note Facility Progress note No data available for this section [facility] Summary Purpose Family History No Family History Records Found Relationship Condition Age at Onset Recorded Date/T yunior father Heart disease Unknown Hypertension Unknown mother Heart disease Unknown Advance Directives No Advanced Directives Records Found Advance Directive Response Recorded Date/ Time Advance Directives No April 9:22am Chief Complaint and Reason for Visit Chief Complaint wellness Reason for Visit Anxiety with depress ion Elevated blood pressure reading Encounter for screening colonoscopy Wellness examination Additional Source Comments (unrecognized sect ion and content) No Status Records FoundNo Status Records FoundNo Status Records Found INFORMATION SOURCE (unrecogn ized section and content) DATE CREATED AUTHOR 02/19/2021 [facility] DATE CREATED AUTHOR AUTHOR'S ORGANIZ ATION 02/06/2022 [facility] DATE CREATED AUTHOR AUTHOR'S ORGANIZ ATION 07/01/2024 [facility] Reason for Visit (unrecogniz ed section and content) Reason Comments Other Eyes sensitive to li ght worsening since Ordered Prescriptions (unrec ognized section and content) Prescription Sig Dispensed Refills Start Date End Da te ibuprofen (IBU) 400 MG tablet Take 1 tablet by mouth every 6 hours as needed for Pain 120 tablet 0 02/07/2022 acetaminophen (TYLENOL) 500 MG tablet Take 2 tablets by mouth every 6 hours as needed for Pain or Fever 60 tablet 0 02/07/2022 gentamicin (GARAMYCIN) 0.3 % ophthalmic ointment Apply to the eye 3 times daily for 5 days. 3.5 g 0 02/07/2022 02/17/2022 Scheduled Active and Recently Administ ered Medications (unrecognized section and content) Medication Order 02/05/2022 02/06/2022 02/07/2022 acetaminophen (TYLENOL) tablet 1,000 mg (COMPLETED) 1,000 mg, Oral, ONCE, 1 dose, On 02/06/22 at 2336, Maximum dose of acetaminophen is 4000 mg from all sources in 24 hours. 2348 (Given - Provider: Sil Pollard RN) fluorescein ophthalmic strip 2 mg (COMPLETED) 2 mg (2 strip), Both Eyes, ONCE, 1 dose, On 02/06/22 at 2336, 1 mg = 1 strip 2349 (Given - Provider: Sil Pollard RN - Comment: Given to Dr. Alcantara) ibuprofen (ADVIL;MOTRIN) tablet 400 mg (COMPLETED) 400 mg, Oral, ONCE, 1 dose, On Mon02/07/22 at 0045, Do not crush or chew. 0117 (Given - Provid er: Adelaida Crespo, JULIAN) proparacaine (ALCAINE) 0.5 % ophthalmic solution 1 drop (COMPLETED) 1 drop, Both Eyes, ONCE, 1 dose, On 02/06/22 at 2336 2349 (Given - Provider: Sil Pollard RN - Comment: Given to Dr. Alcantara) tobramycin (TOBREX) 0.3 % ophthalmic ointment 0.5 inch (COMPLETED) 0.5 inch, Left Eye, ONCE, 1 dose, On Mon02/07/22 at 0050, .. 0117 (Given - Provid er: Adelaida Crespo, JULIAN) Care Teams (unrecognized sec tion and content) Hand Edger Relationship Specialty Start Date End Date Bibi Osorio DO [address] [place] [address] PCP - General Family Medicine 02/07/22 Team Status: Active Member Role Status Dates Bibi Osorio DO Primary Care Provider Active Team Status: Inactive Member Role Status Dates Bibi DO [place] Primary Care Provide r, Attending Provider Active Start: April 05, 2024 End: April 05, 2024 Goals (unrecognized section and content) Goals may be documented in a n alternate section No data available for this section FOR RECORDS PERTAINING TO PATIENTS WHO ARE OR HAVE BEEN ENROLLED IN A CHEMICAL DEPENDENCY/SUBSTANCEABUSE PROGRAM, SOME INFORMATION MAY BE OMITTED. This clinical summary was aggregated from multiple sources. Caution should be exercised in using it in the provision of clinical care. This summary normalizes information from multiple sources, and as a consequence, information in this document may materially change the coding, format and clinical context of patient data. In addition, data may be omitted in some cases. CLINICAL DECISIONS SHOULD BE BASED ON THE PRIMARY CLINICAL RECORDS. [employer] provides no warranty or guarantee of the accuracy or completeness of information in this document.
--- NOTE | 2024-08-15 01:33 | ED_ITS ---
HPI HPI - General Adult General Chief complaint: Eye Problems Stated complaint: EYE PAIN, LEFT Time Seen by Provider: 08/15/24 00:55 Source: patient Mode of arrival: walk-in Limitations: no limitations History of Present Illness HPI narrative: The gentleman is a very pleasant 49-year-old who presents to the emergency department with left eye pain. 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 He wears glasses as well as a UV quinonez. Patient states that he noticed a couple hours ago he was having left eye discomfort. It is a 2-3 out of 10. It is dull and achy like in sensation. He does not have any blurry vision, double vision, loss of vision. He has never had any eye surgery in this eye before. He does wear contacts. The patient states that he has a foreign body sensation. He does not have any itching. He does not have any ocular discharge. Patient does not do any grinding or have any metal shavings that he is exposed to. No radiation of the pain. No headache. Related Data Home Medications ?Medication ?Instructions ?Recorded ?Confirmed No Known Home Medications 08/15/24 08/15/24 Allergies Allergy/AdvReac Type Severity Reaction Status Date / Time amoxicillin (From Augmentin) Allergy Mild Vomiting Verified 08/15/24 01:07 clavulanic acid (From Allergy Mild Vomiting Verified 08/15/24 01:07 Augmentin) Opioid HPI Opioid Management Most Recent Opioid Data: Last Pain Scale 3 08/15/24 01:10 08/15/24 Review of Systems ROS Narrative 10 Systems were reviewed, and unless not ed in the HPI, all other systems are reviewed, unremarkable, or noncontributory. PFSH PFSH Social History Little interest or pleasure in doing things: not at all Feeling down, depressed, or hopeless: not at all Exam Narrative Exam Narrative: Prior to examining the patient, I have washed with hospital approved and provided Antiseptic Hand Wildlife [employer] Specialist and have also applied gloves.? Prior to touching the patient, I asked for consent to examine the patient.? General: Alert and oriented, well nourished, mild distress. Eye: PERRL, EOMI, 4 mm and reactive. No vertical or horizontal nystagmus. Patient does not have any posterior synechiae present. No consensual light reflex pain. The patient Fluorescein stain and an examination with a Aleman lamp. Patient has corneal stippling. No evidence of gross foreign body or rust rings. Conjunctiva is injected. HENT: Normocephalic, normal hearing, moist oral mucosa, no scleral icterus, Musculoskeletal: Normal range of motion and strength, no tenderness or swelling. Skin: Skin is warm, dry and pink, no rashes or lesions. Neurologic: Awake, alert, and oriented X3, CN II-XII intact. Psychiatric: Cooperative, appropriate mood and affect.? Following the conclusion of the examination, I have washed my hands thoroughly after removing examination gloves. Constitutional Vital Signs, click to edit/add: Last Vital Signs Temp 98.3 F 08/15/24 01:07 Pulse 78 08/15/24 01:07 Resp 18 08/15/24 01:07 BP 159/110 H 08/15/24 01:07 Pulse Ox 97 08/15/24 01:07 O2 Del Method Room Air 08/15/24 01:07 Course Course Hospital Course: Patient is a 49-year-old male presenting to the emergency department with left eye pain. He is a arc welder apprentice. He does not do any metal grinding. Patient has left eye pain that is a 2-3 out of 10 without any vision changes. Patient eye was examined with a Aleman lamp and fluorescein stain he has evidence of stippling. The patient does not have any pressure sensation in the eye. No history of glaucoma. No family medical history of glaucoma. No vision changes. Do not think any imaging of the eye or brian pressures need to be performed. Vital Signs Vital signs: Vital Signs Temperature 98.3 F 08/15/24 01:07 Pulse Rate 78 08/15/24 01:07 Respiratory Rate 18 08/15/24 01:07 Blood Pressure 159/110 H 08/15/24 01:07 Pulse Oximetry 97 08/15/24 01:07 Oxygen Delivery Method Room Air 08/15/24 01:07 Temperature 98.3 F 08/15/24 01:07 Pulse Rate 78 08/15/24 01:07 Respiratory Rate 18 08/15/24 01:07 Blood Pressure 159/110 H 08/15/24 01:07 Pulse Oximetry 97 08/15/24 01:07 Oxygen Delivery Method Room Air 08/15/24 01:07 Medical Decision Making MDM Narrative Medical decision making narrative: 49-year-old presents with left eye pain that appears to be secondary to UV keratitis. Patient will follow-up with his primary care physician. He will use eyedrops 1 drop 3 times a day for 1 week. Differential Diagnosis Differential Diagnosis: Conjunctivitis, rust ring, foreign body, UV keratitis Medical Records Medical records reviewed: Yes I reviewed the patient's medical records Discharge Plan Discharge Chief Complaint: Eye Problems Clinical Impression: UV keratitis Patient Disposition: Home, Self-Care Time of Disposition Decision: 01:38 Condition: Good Mode of Transportation: Private Vehicle Prescriptions / Home Meds: No Action No Known Home Medications Print Language: Greenlandic Instructions: Corneal Flash Gautam (ED), Keratitis (ED) Additional Instructions: Thank you for trusting me with your care. It was nice to meet you. Please follow-up with your physician in a week. But if you are still having pain in your eye I would like you to be seen again in the next 24 to 48 hours. Please do not wear your contacts until this issue is resolved. Referrals: BIBI OSORIO [Primary Care Provider] - 1 week Procedures ED Procedure Instructions Procedures Procedures: I examined the patient and the Aleman lamp. The patient's eye was anesthetized with tetracaine. Then I used a fluorescein strip to dye the eye. Then I used a Aleman lamp to evaluate the eye. Stippling was appreciated. No gross foreign body or rust rings present.
[2024-08-15] MEDS: FLUORESCEIN SODIUM 1 MG STRIP OP (01:40)
[2024-08-15] MEDS: TETRACAINE HCL 0.5% OP SOL 80 DROP/4 ML BOTTLE OP (01:40)
[2024-08-15 01:56] VITALS: BP 146/100; PULSE 71; O2SAT 96
[2024-08-15] MEDS: MOXIFLOXACIN HCL 0.5% OP 60 DROP/3 ML BOTTLE OP (01:58)
--- NOTE | 2024-08-15 02:01 | PC.NURSE ---
i gave this patient verbal and written discharge orders along with 1 e-script and this patient voices yes to understanding these. at time of discharge this patient voices no concerns and shows no signs of distress
== END 2024-08-15 02:02 | disposition home or self-care (01) ==
PROVIDERS: Emergency Provider Emergency Medicine; PCP Family Medicine
DX: H16.8 Other keratitis (principal)
CPT/HCPCS: 99284